=== PATIENT | female | born 1940 | race Caucasian/White ===

== ENCOUNTER 2017-02-04 07:42 | Day surgery (SDC) | payer MEDICARE, OTHER ==
[~2017-02-04] VITALS: Ht 167.6 cm; Wt 97.1 kg
[~2017-02-04 07:42] MED LIST: ALTACE5 M1 PO; COMBIVENT IN; COMBIVENT RESPIMAT IN; CRESTOR20 MG PO; FLUARIX QUADRIV1 INJ IM; HYDROCHLOROT12.5 MG PO; LEVOTHYROXIN75 MCG PO; PREVNAR 13 IM; TRIAMCINOLON0.11 EX
[2017-02-04 09:39] VITALS: BP 109/55
== END 2017-02-04 09:55 | disposition home or self-care (01) ==
LOC: ENDO 07:42 → ORM 08:00 → ENDO 09:30 → ORM 09:30 → ENDO 09:55
PROVIDERS: ATTEND Internal Medicine Gastroenterology
PROC: 0DBL8ZX Excision of Transverse Colon, Via Natural or Artificial Opening Endoscopic, Diagnostic (ICD-10-PCS; principal; 2017-02-04)
DX: Z12.11 Encounter for screening for malignant neoplasm of colon (principal); D12.3 Benign neoplasm of transverse colon; K64.4 Residual hemorrhoidal skin tags; K57.30 Diverticulosis of large intestine without perforation or abscess without bleeding; K64.8 Other hemorrhoids; I10 Essential (primary) hypertension; E78.00 Pure hypercholesterolemia, unspecified; Z86.010 Personal history of colon polyps; Z80.0 Family history of malignant neoplasm of digestive organs

== ENCOUNTER 2018-04-17 19:26 | Emergency (ER) | payer MEDICARE, OTHER ==
[~2018-04-17] VITALS: Ht 167.6 cm; Wt 90.0 kg
[2018-04-17 20:18] LABS: URINE BLOOD DIPSTICK LARGE (NEGATIVE); URINE GLUCOSE - DIPSTICK NEGATIVE (NEGATIVE); URINE KETONE NEGATIVE (NEGATIVE); URINE LEUK ESTERASE TRACE (NEGATIVE); URINE NITRITE - DIPSTICK NEGATIVE (Negative); URINE PROTEIN - DIPSTICK 30 mg/dL (NEG-TRACE); URINE SPECIFIC GRAVITY >=1.030; URINE UROBILINOGEN - DIPSTICK 0.2 E.U./dL (0.2)
[2018-04-17 20:19] LABS: URINE BILIRUBIN - DIPSTICK NEGATIVE (NEGATIVE); URINE CLARITY CLOUDY; URINE COLOR DK. YELLOW
[2018-04-17 20:25] LABS: URINE RBC >100 RBC/hpf (0-5); URINE SQUAMOUS EPITHELIAL CELL FEW EPI/hpf (0-FEW)
[2018-04-17 20:56] LABS: HEMATOCRIT 40.6 % (37.0-47.0); HEMOGLOBIN 12.8 g/dl (12.0-16.0); IMMATURE GRANULOCYTES 0.3 % (0.0-5.0); MEAN CELL VOLUME 97.8 fL CALC (80.0-100.0); MEAN CORPUSCULAR HGB 30.8 pG CALC (26.0-32.0); MEAN CORPUSCULAR HGB CONC 31.5 g/L CALC (32.0-36.0); NEUT# 9.77 thou/uL (2.00-7.15); RED BLOOD COUNT 4.15 mill/uL (4.20-5.60); RED CELL DISTRI WIDTH 14.8 % (11.5-15.5)
[2018-04-17 21:06] LABS: ALBUMIN 4.5 g/dL (3.2-5.0); BILIRUBIN, TOTAL 0.6 mg/dL (0.0-1.4); CREATININE 1.1 mg/dL (0.5-1.0); POTASSIUM 4.3 mmol/l (3.5-5.1)
[2018-04-17] MEDS ORDERED: ZOFRAN ODT4 MG PO (23:16)
[2018-04-17] MEDS ORDERED: CIPROFLOXACN500 MG PO (23:16)
[2018-04-17 23:45] VITALS: BP 172/70
== END 2018-04-17 23:50 | disposition home or self-care (01) ==
LOC: ED 19:26
PROVIDERS: Emergency Medicine
DX: N39.0 Urinary tract infection, site not specified (principal); I10 Essential (primary) hypertension; J44.9 Chronic obstructive pulmonary disease, unspecified

== ENCOUNTER → 2018-07-14 | Outpatient (REF) | payer MEDICARE, OTHER ==
[~2018-07-14] MED LIST changes: +CIPROFLOXACN500 MG PO; +ZOFRAN ODT4 MG PO
== END | disposition home or self-care (01) ==
LOC: LAB 07:34
PROVIDERS: ATTEND Internal Medicine Geriatric Medicine
DX: E03.9 Hypothyroidism, unspecified (principal)

== ENCOUNTER 2019-07-09 16:18 | Observation (INO) | payer MEDICARE, OTHER ==
[~2019-07-09] VITALS: Ht 167.6 cm; Wt 96.0 kg
[2019-07-09 18:47] LABS: URINE BILIRUBIN - DIPSTICK NEGATIVE (NEGATIVE); URINE BLOOD DIPSTICK LARGE (NEGATIVE); URINE COLOR YELLOW; URINE GLUCOSE - DIPSTICK NEGATIVE (NEGATIVE); URINE KETONE NEGATIVE (NEGATIVE); URINE LEUK ESTERASE TRACE (NEGATIVE); URINE NITRITE - DIPSTICK NEGATIVE (Negative); URINE PROTEIN - DIPSTICK TRACE mg/dL (NEG-TRACE); URINE SPECIFIC GRAVITY >=1.030; URINE UROBILINOGEN - DIPSTICK 0.2 E.U./dL (0.2)
[2019-07-09 18:47] LABS: HEMATOCRIT 41.4 % (37.0-47.0); HEMOGLOBIN 12.8 g/dl (12.0-16.0); IMMATURE GRANULOCYTES 0.5 % (0.0-5.0); MEAN CELL VOLUME 96.3 fL CALC (80.0-100.0); MEAN CORPUSCULAR HGB 29.8 pG CALC (26.0-32.0); MEAN CORPUSCULAR HGB CONC 30.9 g/L CALC (32.0-36.0); NEUT# 8.49 thou/uL (2.00-7.15); RED BLOOD COUNT 4.3 mill/uL (4.20-5.60)
[2019-07-09 18:54] LABS: URINE BACTERIA RARE hpf; URINE RBC TNTC RBC/hpf (0-5); URINE SQUAMOUS EPITHELIAL CELL FEW EPI/hpf (0-FEW)
[2019-07-09 19:11] LABS: ALBUMIN 4.6 g/dL (3.2-5.0); POTASSIUM 4.9 mmol/l (3.5-5.1)
[2019-07-09 19:12] LABS: BILIRUBIN, TOTAL 0.7 mg/dL (0.0-1.4)
[2019-07-09] MEDS ORDERED: LIPITOR10 M1 PO (19:54)
[2019-07-09] MEDS ORDERED: SYNTHROID25 MCG PO (19:56)
[2019-07-09 22:00] VITALS: BP 140/66
[2019-07-09 23:54] VITALS: BP 98/50
[2019-07-10 03:56] VITALS: BP 104/50
[2019-07-10 07:39] VITALS: BP 113/71
[2019-07-10 15:44] VITALS: BP 122/70
[2019-07-10 20:41] VITALS: BP 133/63
[2019-07-11 04:00] VITALS: BP 135/70
[2019-07-11 05:26] LABS: HEMATOCRIT 36.7 % (37.0-47.0); HEMOGLOBIN 11.4 g/dl (12.0-16.0); MEAN CELL VOLUME 96.1 fL CALC (80.0-100.0); MEAN CORPUSCULAR HGB 29.8 pG CALC (26.0-32.0); MEAN CORPUSCULAR HGB CONC 31.1 g/L CALC (32.0-36.0); RED BLOOD COUNT 3.82 mill/uL (4.20-5.60)
[2019-07-11 05:59] LABS: CREATININE 1.7 mg/dL (0.5-1.0); POTASSIUM 5.1 mmol/l (3.5-5.1)
[2019-07-11 08:01] VITALS: BP 119/69
[2019-07-11] MEDS ORDERED: TAMSULOSIN HCL0.4 MG PO (09:39)
== END 2019-07-11 12:36 | disposition home or self-care (01) ==
LOC: ED 16:18 → ED-I 18:09 → ED 18:09 → ED-I 20:36 → ED 20:48 → MS2 20:49
PROVIDERS: Family Medicine; Nurse Practitioner Family; ADMIT Internal Medicine; ATTEND Internal Medicine
DX: N13.2 Hydronephrosis with renal and ureteral calculous obstruction (principal); N17.9 Acute kidney failure, unspecified; I35.0 Nonrheumatic aortic (valve) stenosis; I10 Essential (primary) hypertension; E78.5 Hyperlipidemia, unspecified; E03.9 Hypothyroidism, unspecified; J43.9 Emphysema, unspecified; Z87.891 Personal history of nicotine dependence; Z87.442 Personal history of urinary calculi
CPT/HCPCS: G0378; Q9967

== ENCOUNTER 2020-11-09 13:49 | Emergency (ER) | payer MEDICARE, OTHER ==
[~2020-11-09] VITALS: Ht 167.6 cm; Wt 97.7 kg
[~2020-11-09 13:49] MED LIST changes: +LIPITOR10 M1 PO; +SYNTHROID25 MCG PO; +TAMSULOSIN HCL0.4 MG PO
[2020-11-09] MEDS ORDERED: HYDROCO/APAP1 TA9 PO (14:52)
[2020-11-09 15:15] VITALS: BP 98/54
== END 2020-11-09 15:30 | disposition home or self-care (01) ==
LOC: ED 13:49
PROC: 2W3CX1Z Immobilization of Right Lower Arm using Splint (ICD-10-PCS; principal; 2020-11-09)
DX: S52.501A Unspecified fracture of the lower end of right radius, initial encounter for closed fracture (principal); S52.611A Displaced fracture of right ulna styloid process, initial encounter for closed fracture; I10 Essential (primary) hypertension; J44.9 Chronic obstructive pulmonary disease, unspecified; V48.4XXA Person boarding or alighting a car injured in noncollision transport accident, initial encounter; Y92.481 Parking lot as the place of occurrence of the external cause

== ENCOUNTER 2020-12-18 19:31 | Emergency (ER) | payer MEDICARE, OTHER ==
[~2020-12-18 19:31] MED LIST changes: +HYDROCO/APAP1 TA9 PO
[2020-12-18 20:32] VITALS: BP 119/69
== END 2020-12-18 20:30 | disposition home or self-care (01) ==
LOC: ED 19:31
DX: H21.02 Hyphema, left eye (principal); I12.9 Hypertensive chronic kidney disease with stage 1 through stage 4 chronic kidney disease, or unspecified chronic kidney disease; N18.9 Chronic kidney disease, unspecified; J44.9 Chronic obstructive pulmonary disease, unspecified

== ENCOUNTER 2021-01-29 16:02 | Observation (INO) | payer MEDICARE, OTHER ==
[~2021-01-29] VITALS: Ht 167.6 cm; Wt 102.0 kg
--- NOTE | 2021-01-29 18:08 | NUR ---
PATIENT TO ROOM VIA WHEELCHAIR AND PHYSICIAN AT BEDSIDE FOR EVAL
--- NOTE | 2021-01-29 18:20 | NUR ---
PATIENT IN ROOM WITH DAUGHTER
--- NOTE | 2021-01-29 19:00 | NUR ---
RESTING QUIETLY AWAITING IV START
--- NOTE | 2021-01-29 20:00 | NUR ---
NO CHANGE IN EXAM.
[2021-01-29 20:19] LABS: HEMATOCRIT 40.4 % (37.0-47.0); HEMOGLOBIN 12.4 g/dl (12.0-16.0); IMMATURE GRANULOCYTES 1.1 % (0.0-5.0); MEAN CELL VOLUME 100.7 fL CALC (80.0-100.0); MEAN CORPUSCULAR HGB 30.9 pG CALC (26.0-32.0); MEAN CORPUSCULAR HGB CONC 30.7 g/dL CAL (32.0-36.0); NEUT# 6.78 thou/uL (2.00-7.15); RED BLOOD COUNT 4.01 mill/uL (4.20-5.60); RED CELL DISTRI WIDTH 15.1 % (11.5-15.5)
[2021-01-29 20:31] LABS: ALBUMIN 4.4 g/dL (3.2-5.0); BILIRUBIN, TOTAL 0.4 mg/dL (0.0-1.4); CREATININE 1.3 mg/dL (0.5-1.0); POTASSIUM 4.1 mmol/l (3.5-5.1); TOTAL PROTEIN 7.6 g/dL (6.3-8.2)
--- NOTE | 2021-01-29 21:00 | NUR ---
RESTING QUIETLY. NAD.
--- NOTE | 2021-01-29 22:00 | NUR ---
AWAITING TRANSPORT TO M/S.
--- NOTE | 2021-01-29 22:15 | NUR ---
Admission Note Report Given to: BRITNEY SHAW Transported by: X Wheelchair Stretcher Transported with: X Nurse Transporter X Patent IV O2 Balloon Design Printer Location: ICU X [facility]
--- NOTE | 2021-01-29 22:20 | NUR ---
Pt arrived to med surg unit via wc accompanied by ed nurse. [employer]Y [employer] EXAMINER's in with the pt at this time.
[2021-01-29 22:27] VITALS: BP 134/74
--- NOTE | 2021-01-30 00:25 | NUR ---
PT SLEEPING, NO S/O DISTRESS NOTED AT THIS TIME. CALL LIGHT AT SIDE.
--- NOTE | 2021-01-30 03:00 | NUR ---
Pt appears to be sleeping, no s/o distress noted.
[2021-01-30 04:00] VITALS: BP 132/77
[2021-01-30 06:00] LABS: HEMATOCRIT 37.8 % (37.0-47.0); HEMOGLOBIN 11.6 g/dl (12.0-16.0); MEAN CELL VOLUME 101.9 fL CALC (80.0-100.0); MEAN CORPUSCULAR HGB 31.3 pG CALC (26.0-32.0); MEAN CORPUSCULAR HGB CONC 30.7 g/dL CAL (32.0-36.0); RED BLOOD COUNT 3.71 mill/uL (4.20-5.60); RED CELL DISTRI WIDTH 15.1 % (11.5-15.5)
[2021-01-30 06:06] LABS: CREATININE 1.1 mg/dL (0.5-1.0); POTASSIUM 4.4 mmol/l (3.5-5.1)
--- NOTE | 2021-01-30 07:00 | NUR ---
REPORT REC FROM Micaela CARRANZA RN
[2021-01-30 08:58] VITALS: BP 115/60
--- NOTE | 2021-01-30 08:58 | NUR ---
PT SITTING ON THE SIDE OF THE BED. A&O X4. NO DISTRESS NOTED. PT REPORTS VISUAL IMPAIRMENT; ONGOING FOR A LONG TIME. CLEAR BREATH SOUNDS UPON AUSCULTATION. ACTIVE BOWEL SOUNDS X4 QUADRANTS. BLE EDEMA NOTED, +3RLE & 4LLE. LLE REDDENED, WARM AND DRY TO TOUCH. PT ENCOURAGED TO ELEVATE EXTREMITIES. ABLE TO AMBULATE WITH SOME ASSISSTANCE, DENIES ANY DISCOMFORT WITH AMBULATION. NO OTHER NEEDS AT THIS TIME. ASSESSMENT COMPLETED. DISCUSSED POC. CALL LIGHT WITHIN REACH.
--- NOTE | 2021-01-30 10:10 | NUR ---
DR KINGSTON AND Jocelyne MCCOY APRN AT BEDSIDE DISCUSSING POC
[2021-01-30] MEDS ORDERED: LASIX 20 MG TAB20 MG PO (10:17)
[2021-01-30] MEDS ORDERED: DOXYCYCL HYC100 MG PO (10:18)
[2021-01-30 11:34] VITALS: BP 123/71
--- NOTE | 2021-01-30 15:21 | NUR ---
D/C INSTRUCTIONS GIVEN TO PT. PT VERBALIZED UNDERSTANDING.
--- NOTE | 2021-01-30 15:35 | NUR ---
Discharge instructions given. Patient verbalizes understanding of same. Discharged in stable condition via Wheelchair to Home with staff. All belongings sent with pt. Education given regarding new medications.
== END 2021-01-30 15:35 | disposition home or self-care (01) ==
LOC: ED 16:02 → ED-I 20:37 → ED 20:56 → MS2 20:57
PROVIDERS: Family Medicine; ADMIT Hospitalist; ATTEND Hospitalist
DX: L03.116 Cellulitis of left lower limb (principal); I12.9 Hypertensive chronic kidney disease with stage 1 through stage 4 chronic kidney disease, or unspecified chronic kidney disease; N18.9 Chronic kidney disease, unspecified; J43.9 Emphysema, unspecified; E78.5 Hyperlipidemia, unspecified; E03.9 Hypothyroidism, unspecified; E66.9 Obesity, unspecified; Z87.442 Personal history of urinary calculi; Z87.891 Personal history of nicotine dependence; Z68.36 Body mass index [BMI] 36.0-36.9, adult; Z20.822 Contact with and (suspected) exposure to COVID-19

== ENCOUNTER 2021-07-30 09:11 | Emergency (ER) | payer MEDICARE ==
[~2021-07-30] VITALS: Ht 167.6 cm; Wt 97.0 kg
[2021-07-30] VITALS (11 sets, daily range): BP systolic 86–151; BP diastolic 47–79
[~2021-07-30 09:11] MED LIST changes: +DOXYCYCL HYC100 MG PO; +LASIX 20 MG TAB20 MG PO
[2021-07-30 10:21] LABS: HEMATOCRIT 39.8 % (37.0-47.0); HEMOGLOBIN 12.1 g/dl (12.0-16.0); IMMATURE GRANULOCYTES 0.6 % (0.0-5.0); MEAN CELL VOLUME 96.4 fL CALC (80.0-100.0); MEAN CORPUSCULAR HGB 29.3 pG CALC (26.0-32.0); MEAN CORPUSCULAR HGB CONC 30.4 g/dL CAL (32.0-36.0); NEUT# 6.77 thou/uL (2.00-7.15); RED BLOOD COUNT 4.13 mill/uL (4.20-5.60); RED CELL DISTRI WIDTH 16.1 % (11.5-15.5)
[2021-07-30 10:36] LABS: ALBUMIN 4.5 g/dL (3.2-5.0); BILIRUBIN, TOTAL 0.5 mg/dL (0.0-1.4); CREATININE 1.1 mg/dL (0.5-1.0); POTASSIUM 4.3 mmol/l (3.5-5.1); TOTAL PROTEIN 8.3 g/dL (6.3-8.2)
[2021-07-30] MEDS ORDERED: CEPHALEXIN500 MG PO (12:13)
== END 2021-07-30 12:35 | disposition home or self-care (01) ==
LOC: ED 09:11
PROVIDERS: Family Medicine
DX: R60.0 Localized edema (principal); I10 Essential (primary) hypertension; J44.9 Chronic obstructive pulmonary disease, unspecified; Z87.442 Personal history of urinary calculi